=== PATIENT | female | born 1970 | race Caucasian/White ===

== ENCOUNTER 2018-11-30 10:21 | Inpatient (IN) | payer MEDICAID, OTHER ==
[~2018-11-30 10:21] MED LIST: BUPIV. HCL 0.25% (2.5MG/ML)/EPI. (1:200,000) PF 30 ML VIAL IJ ONE; DEXAMETHASONE SODIUM PHOSPHATE 10 MG/ML VIAL ONE; ENOXAPARIN SODIUM 40 MG/0.4 ML DISP.SYRIN SQ ONE; ESMOLOL HCL 100 MG/10 ML IV ONE; FAMOTIDINE 20 MG/2 ML VIAL IV ONE; LACTATED RINGERS 1,000 ML IV.SOLN IV ONE; LEVALBUTEROL NEB 1.25 MG/3 ML VIAL.NEB NEB ONE; LIDOCAINE HCL 1% PF 300MG/30ML VIAL ONE; LIDOCAINE HCL 2% PF 100MG/5ML VIAL IJ ONE; MIDAZOLAM HCL 2 MG/2 ML VIAL ONE; ONDANSETRON HCL/PF 4 MG/ 2ML VIAL ONE; PROPOFOL 200 MG/20 ML VIAL IV ONE; ROCURONIUM BROMIDE 10 MG/ML 5ML VIAL ONE; SEVOFLURANE 250 ML LIQUID IH ONE; SODIUM CHLORIDE IRRIG SOLUTION 3,000 ML IRRIG.SOLN IR ONE; SUGAMMADEX SODIUM 200 MG/2 ML VIAL IV ONE; ceFAZolin SODIUM 1 GM VIAL ONE
[2018-11-30 16:01] VITALS: BMI 52.8
--- NOTE | 2018-11-30 16:25 | History and Physical Report ---
History of Present Illnes - History of Present Illness Reason for Visit: S/P LSG History of Present Illness: Patient is a 48-year-old female who has tried multiple diets and exercise programs with no success. She has always struggled with her weight. She has tried many diet plans, diet pills, and walking and has not been able to keep it off. Patient and surgeon decided to proceed with gastric sleeve procedure. Procedure went well- patient will be admitted and monitored s/p surgical intervention. Patient has been on a liquid diet prior to surgery so she is a risk of dehydration s/p surgery. She will be admitted for IV hydration to help hydrate patient until she is able to tolerate a sufficient oral intake, will treat pain with IV medication until patient is able to tolerate oral meds, IV antiemetics to help reduce episodes of nausea and/or vomiting. Patient will be monitored closely using telemetry. Will monitor respiratory status due to asthma and daily use of inhaler. - Past Medical History Pulmonary: Asthma Gastrointestinal: GERD Psych: Anxiety Musculoskeletal: Other (JOINT PAIN) Grav: 2 Para: 2 - Past Surgical History Past Surgical History: Cholecystectomy, Hysterectomy, Other (CTR), Tubal Ligation, Other (MYRINGOTOMY) - Past Family History Mother Family History: CAD, CVA, Hypertension - Past Social History Smoke: No Alcohol: None Drugs: None Lives: With Family Domestic Violence: Negative - Health Maintenance Health Maintenance: Influenza Vaccine Influenza Vaccine: Current for this Influenza Season Pneumonia Vaccine: No Resuscitation Status: Resusciation Status Resuscitation Status Full Code - Unable to Obtain History Unable to Obtain: No Review of Systems - Review of Systems Constitutional: negative: Fever, Chills Eyes: negative: conjunctivae inflammation, eyelid inflammation ENT: negative: Ear Pain, Nose Pain, Throat Pain Respiratory: negative: Cough, Shortness of Breath, SOB with Excertion Cardiovascular: negative: Chest Pain, Edema, Light Headedness Gastrointestinal: Nausea, Vomiting, Abdominal Pain Genitourinary: negative: Dysuria Musculoskeletal: negative: Back Pain Skin: Other (INCISION SITE X 5). negative: Rash Neurological: negative: Weakness, Confusion - Medications/Allergies Allergies/Adverse Reactions: Allergies Allergy/AdvReac Type Severity Reaction Status Date / Time Penicillins Allergy Verified 11/30/18 16:12 Sulfa (Sulfonamide Allergy Verified 11/30/18 16:12 Antibiotics) Exam - Exam Vital Signs: Vital Signs (72 hours) 11/30/18 11/30/18 11/30/18 15:30 15:47 16:00 Temperature 96.5 F L 96.5 F L Pulse Rate [ 84 Apical] Pulse Rate [ 76 80 Left] Respiratory 20 22 20 Rate Blood Pressure 125/78 145/88 [Left Arm] O2 Sat by Pulse 92 95 Oximetry General: Alert, Oriented to Person, Oriented to Place, Oriented to Time, Cooperative, Moderate distress, Morbidly Obese HEENT: PERRLA, Nose Mucous membr. moist/Madeline Neck: Normal Range of Motion Carotids: NO BRUIT Lungs: Clear to auscultation, Normal air movement Cardiovascular: Regular rate, Normal S1, Normal S2 Peripheral Edema: NONE Peripheral Pulses: 2+ Abdomen: Soft, Decreased Bowel Sounds Integumentary: Warm, Dry, Pale, Other (INCISION SITE DRSG DRY/INTACT) Extremities: No edema, Normal pulses, No tenderness/swelling Neurological: Normal speech, Strength Equal Bilat, Sensation intact Psych/Mental Status: Mental status NL, Intact Judgment Assessment/Plan - Assessment/Plan (1) Status post gastric surgery Status: Acute Current Visit: Yes Plan: Plan to admit for IV hydration, IV pain meds, and IV antiemetics. Lovenox and SCDs to help prevent DVTs, IS and frequent ambulation will be implemented. Start ice chips and advance diet as tolerated. (2) Morbid obesity due to excess calories Status: Acute Current Visit: Yes Plan: Patient is s/p gastric sleeve. We will assist patient with implementing gastric sleeve diet protocol starting with ice chips and clear liquids and advancing as tolerated. (3) Asthma Status: Acute Current Visit: Yes Plan: Will monitor resp. status closely; continue use of home inhalers, and will implement incentive spirometry (4) GERD (gastroesophageal reflux disease) Status: Acute Current Visit: Yes Plan: Will implement Pepcid IV BID (5) Anxiety Status: Acute Current Visit: Yes Plan: Will monitor closely and implement medication as needed VTE Assessment - RISK FACTOR SCORE VTE RISK FACTOR SCORES: AGE 40-60 YEARS, OBESITY, MAJOR SURGERY/ANESTHESIA TIME > 1 HOUR - RISK VTE HIGH RISK: SCORE OF 3-4 (RISK PROXIMAL DVT 4-8%) PROPHYLAXIS NEEDED (Lovenox daily, IS, SCDs while in bed, frequent ambulation)
[2018-11-30] MEDS ORDERED: ALBUTEROL 90MCG/PUFF INHALER IH PRN ×2 (17:03→17:12)
[2018-11-30] MEDS ORDERED: LORazepam 1 MG TABLET PO PRN (17:03)
[2018-11-30] MEDS ORDERED: MORPHINE SULFATE 4 MG/ML VIAL IV PRN (17:34)
[2018-11-30] MEDS ORDERED: ONDANSETRON HCL/PF 4 MG/ 2ML VIAL IVP PRN (17:36)
[2018-11-30] MEDS: 0.9 % SODIUM CHLORIDE 1,000 ML IV SCH (17:57)
[2018-11-30] MEDS: CEFAZOLIN IV SCH (17:57)
[2018-11-30] MEDS: FAMOTIDINE 20 MG/2 ML VIAL IV SCH (21:13)
[2018-11-30] MEDS: PROMETHAZINE HCL 25 MG in 0.9 % SODIUM CHLORIDE 50 ML IV PRN (21:14)
[2018-12-01] MEDS: KETOROLAC TROMETHAMINE 30 MG/1ML VIAL IV PRN ×3 (00:27→21:09)
[2018-12-01] MEDS: 0.9 % SODIUM CHLORIDE 1,000 ML IV SCH ×4 (01:15→21:02)
[2018-12-01] MEDS: PROMETHAZINE HCL 25 MG in 0.9 % SODIUM CHLORIDE 50 ML IV PRN ×3 (02:40→21:06)
[2018-12-01] MEDS: CEFAZOLIN IV SCH (02:50)
[2018-12-01] MEDS ORDERED: MAG HYDROX/ALUMINUM HYD/SIMETH 30 ML UDC PO ONE (06:51)
--- NOTE | 2018-12-01 06:53 | Inpatient Progress Note ---
Subjective - Required Recertification Statement I anticipate X number of days because-include discharge plan: 1 - Review of Systems Events since last encounter: Patient states that she had a bad night. She had some nausea and dry heaves all night- she was encouraged to sip her drinks and wait in between drinks- she states that her pain is tolerable and pain medications are working. She has been up walking in the [place], wearing SCDs while in bed, and using Incentive Spirometry- incision sites are dry and intact. Will start patient on Reglan and Mylanta. General: Denies: Chills, Night Sweats HEENT: Denies: Head Aches Pulmonary: Denies: Dyspnea Cardiovascular: Denies: Chest Pain, Light Headedness Gastrointestinal: Nausea, Vomiting, Abdominal Pain Genitourinary: Denies: Dysuria Musculoskeletal: Denies: Back Pain Neurological: Denies: Weakness Objective - Exam Vitals and I&O: Vital Signs Temp 98.9 F 12/01/18 05:35 Pulse 111 H 12/01/18 05:35 Resp 16 12/01/18 05:35 BP 149/79 12/01/18 05:35 Pulse Ox 95 12/01/18 05:35 Intake & Output 11/30/18 11/30/18 12/01/18 11:59 23:59 11:59 Intake Total 450 1000 Output Total 600 900 Balance -150 100 Weight 139.706 kg Intake: IV 450 900 Right Hand 450 900 Oral 100 Output: Urine 600 900 Other: # Voids 1 # Bowel Movements 0 General: Alert, Oriented to Person, Oriented to Place, Oriented to Time, Cooperative, Moderate distress, Morbidly Obese HEENT: PERRLA, Nose Mucous membr. moist/[place] Neck: Supple, +2 carotid pulse wo bruit Lungs: Clear to auscultation, Normal air movement, Speaks full Sentences Cardiovascular: Regular rate, Normal S1, Normal S2 Abdomen: Normal bowel sounds, Soft Extremities: No edema, Normal pulses, No tenderness/swelling Skin: Warm, Dry, Pale, Other (incisions are dry and intact) Neurological: Normal gait, Normal speech, Strength Equal Bilat, Sensation intact Psych/Mental Status: Mental status NL, Mood NL, Appropriate Affect, Intact Judgment Assessment/Plan - Assessment/Plan (1) Status post gastric surgery Status: Acute Assessment: Incision without redness or drainage, positive bowel sounds, minimal discomfort, belching and flatus, no extremity pain or edema, had some nausea with dry heaves Plan: Will continue to have patient ambulate frequently in the [place], wear SCDs while in bed, frequent use of incentive spirometer, continue IVF until patient can take in sufficient oral intake- pt is tolerating po meds (2) Morbid obesity due to excess calories Status: Acute Assessment: Continuing with bariatric diet- patient had some nausea and dry heaves Plan: Will continue with clear liquid diet (3) Asthma Status: Acute Assessment: Snehal- REY Plan: Will start home meds as needed (4) GERD (gastroesophageal reflux disease) Status: Acute Assessment: Patient having nausea and dry heaves Plan: Will continue with IV Zofran and Phenergan, added Reglan and Mylanta, Will continue with Pepcid IV BID (5) Anxiety Status: Acute Assessment: Stable Plan: Will implement home meds as needed
[2018-12-01 07:06] LABS: MONOCYTES % 4.4 % (0.0-11.0)
[2018-12-01 07:07] LABS: BASOPHILS % 0.3 % (0.0-1.5); EOSINOPHILS % 0.9 % (0.0-6.8); NEUTROPHILS # 8.9 # k/uL (1.4-7.7)
[2018-12-01 07:17] LABS: eGFR (Non-African) > 60
[2018-12-01] MEDS: METOCLOPRAMIDE HCL 10 MG/2 ML VIAL IVP PRN ×2 (07:39→18:43)
[2018-12-01] MEDS: ENOXAPARIN SODIUM 40 MG/0.4 ML DISP.SYRIN SQ SCH (09:13)
[2018-12-01] MEDS: FAMOTIDINE 20 MG/2 ML VIAL IV SCH ×2 (09:15→21:10)
[2018-12-01] MEDS: HYDROcodone-ACETAMIN 7.5-325/15ML SOLN UD CUP PO PRN (11:53)
[2018-12-02] MEDS: METOCLOPRAMIDE HCL 10 MG/2 ML VIAL IVP PRN ×2 (02:23→08:35)
[2018-12-02] MEDS: 0.9 % SODIUM CHLORIDE 1,000 ML IV SCH (02:24)
[2018-12-02] MEDS: KETOROLAC TROMETHAMINE 30 MG/1ML VIAL IV PRN (03:50)
--- NOTE | 2018-12-02 06:31 | Discharge Summary ---
Discharge Summary - Discharge [facility] Admission Date: 11/30/18 Discharge Date: 12/02/18 History of Present Illness: Patient is a 48-year-old female who has tried multiple diets and exercise programs with no success. She has always struggled with her weight. She has tried many diet plans, diet pills, and walking and has not been able to keep it off. Patient and surgeon decided to proceed with gastric sleeve procedure. Procedure went well- patient will be admitted and monitored s/p surgical intervention. Patient has been on a liquid diet prior to surgery so she is a risk of dehydration s/p surgery. She will be admitted for IV hydration to help hydrate patient until she is able to tolerate a sufficient oral intake, will treat pain with IV medication until patient is able to tolerate oral meds, IV antiemetics to help reduce episodes of nausea and/or vomiting. Patient will be monitored closely using telemetry. Will monitor respiratory status due to asthma and daily use of inhaler. Condition at Discharge: Stable Home Medications: Ambulatory Orders Medication Instructions Recorded Albuterol Sulfate [Proair HFA] 1 inh IH DAILY PRN 11/30/18 Dicyclomine HCl [Bentyl] 10 mg PO DAILY PRN 11/30/18 LORazepam [Ativan] 1 mg PO Q6 PRN 11/30/18 Loratadine 10 mg PO DAILY 11/30/18 Montelukast Sodium [Singulair] 10 mg PO DAILY 11/30/18 Sumatriptan 20 mg NS DAILY PRN 11/30/18 Consultations this Visit: None Procedures this Visit: Other (S/P LSG) Allergies/Adverse Reactions: Allergies Allergy/AdvReac Type Severity Reaction Status Date / Time Penicillins Allergy Verified 11/30/18 16:12 Sulfa (Sulfonamide Allergy Verified 11/30/18 16:12 Antibiotics) Discharge Summary: Patient is a 48-year-old female that underwent the gastric sleeve procedure and has done well. She has been very cooperative with her care by ambulating frequently, using her incentive spirometer, and wearing her SCDs while in bed. She has been compliant with her diet during hospitalization. She is having minimal discomfort at this time and minimal nausea- she has is passing gas and belching. She is aware of discharge instructions and what she can and cannot do post surgical- she is aware of the strict diet she must follow to decrease discomfort and have success after procedure. She has family support and family will be taking her home- medications written by surgeon given to patient. She feels ready to go home. Hospital Course: Patient received IV pain medications, antiemetics, and IVF and was transitioned to oral. She has been up ambulating and using incentive spirometer. - Final Diagnosis (1) Status post gastric surgery Problems: Incision without redness or drainage, positive bowel sounds, minimal discomfort, belching and flatus, no extremity pain or edema Right or Left: Right (2) Morbid obesity due to excess calories Problems: Continue with bariatric sleeve diet- clear liquids today and start full liquids tomorrow Right or Left: Right (3) Asthma Problems: sTABLE Right or Left: Right (4) GERD (gastroesophageal reflux disease) Problems: Stable continue on Prilosec Right or Left: Right (5) Anxiety Problems: Stable may continue on home meds Right or Left: Right
[2018-12-02] MEDS: HYDROcodone-ACETAMIN 7.5-325/15ML SOLN UD CUP PO PRN (08:33)
[2018-12-02 08:35] VITALS: BP 127/63
[2018-12-02] MEDS: ENOXAPARIN SODIUM 40 MG/0.4 ML DISP.SYRIN SQ SCH (08:38)
[2018-12-02] MEDS: FAMOTIDINE 20 MG/2 ML VIAL IV SCH (08:38)
[2018-12-02] MEDS: PROMETHAZINE HCL 25 MG in 0.9 % SODIUM CHLORIDE 50 ML IV PRN (08:39)
--- NOTE | 2018-12-05 06:53 | Operative Note ---
PREOPERATIVE DIAGNOSIS: 1. Morbid obesity. 2. Joint pain. POSTOPERATIVE DIAGNOSIS: 1. Morbid obesity. 2. Joint pain. PROCEDURES PERFORMED: 1. Laparoscopic vertical sleeve gastrectomy. 2. Upper gastrointestinal endoscopy. SURGEON: Tan Diamond M.D. INDICATIONS FOR PROCEDURE: Ms. Therese Cardona is a 48-year-old female who presented with features of morbid obesity. She was noted to have a weight of 313 with a BMI of 53.8. The patient was advised laparoscopic vertical sleeve gastrectomy and possible hiatal hernia repair. The patient showed understanding and agreed to proceed. DESCRIPTION OF PROCEDURE: After explaining to the patient in detail and informed consent was obtained, the patient was identified in the preoperative holding area. The patient was transferred to the operating room and was placed in supine position. Sequential compressive devices were placed for DVT prophylaxis. Preoperative antibiotics were given. After induction of anesthesia, the abdomen was prepped and draped in a sterile fashion. Through a left upper quadrant 1-cm incision, and using Optiview technique, the peritoneal cavity was entered and pneumoperitoneum was created. Thereafter, under direct vision, another 5-mm trocar was placed in the left midabdomen and another 15-mm trocar was placed in the right midabdomen. Through a 1-cm incision in the right subcostal region, another 5-mm trocar was placed. Through a 1-cm incision in the epigastrium, a Kumar retractor was introduced and the left lobe of the liver was retracted. On initial inspection, the patient was noted to have no evidence of hiatal hernia. I took down the gastroepiploic vessels using a LigaSure. This was continued superiorly. The short gastric vessels were taken down. The gastrophrenic ligament was divided and the Angle of His was mobilized. The posterior attachments of the stomach on the pancreas were released. Distally, the gastroepiploic vessels were taken down up to about 4 cm proximal to the pylorus. At this point, a #38 Kinyarwanda Hurst Bougie was introduced into the stomach and was placed along the lesser curve. The stomach was then divided in a vertical fashion with multiple Endo BRITTANIE Covidien Black Load Staplers. The first firing was directed outwards towards the greater curvature. Subsequent firings were directed towards the Angle of His to create a loose sleeve around the #38 Kinyarwanda bougie. The bougie was then removed and an upper GI endoscopy was performed at this point. The scope was introduced into the esophagus and was gradually advanced into the stomach. The GE junction appeared normal. The sleeve size appeared normal. No evidence of any active bleeding was noted. The stomach was insufflated with air and irrigation of fluid along the staple line revealed no evidence of air leak. The stomach was then suctioned out and the scope was removed. Absolute hemostasis was ensured. Thorough saline irrigation was given. The Kumar retractor was removed. Approximately 10 mL of a lidocaine- Marcaine mix was instilled under the left hemidiaphragm. The sleeve gastrectomy specimen was removed. The abdomen was then deflated. The incisions were closed with 4-0 Monocryl. Dermabond was applied. Approximately 10 mL of a lidocaine- Marcaine mix was injected into all the incisions. The patient was awakened from anesthesia and was transferred to the recovery room in stable condition. ESTIMATED BLOOD LOSS: Approximately 20 mL. CONDITION OF THE PATIENT: Stable. FLUIDS GIVEN: Per Anesthesia note. SPECIMEN(S) SENT: Sleeve gastrectomy specimen. COMPLICATIONS: None. ANESTHESIA: General. Tan Diamond M.D. JACINTO/elia (Please copy [facility] provider when applicable) Job #[id number] TRACY
== END 2018-12-02 10:45 | disposition home or self-care (01) | DRG 621 ==
LOC: OPSURG 10:21 → SOUTH 15:40
PROVIDERS: ADMIT Nurse Practitioner Family; ATTEND Nurse Practitioner Family
PROC: 0DB64Z3 Excision of Stomach, Percutaneous Endoscopic Approach, Vertical (ICD-10-PCS; principal; 2018-11-30)
DX: E66.01 Morbid (severe) obesity due to excess calories (principal); Z68.43 Body mass index [BMI] 50.0-59.9, adult; F41.9 Anxiety disorder, unspecified; K21.9 Gastro-esophageal reflux disease without esophagitis; J45.909 Unspecified asthma, uncomplicated; Z79.899 Other long term (current) drug therapy; Z88.0 Allergy status to penicillin; Z88.2 Allergy status to sulfonamides; Z90.49 Acquired absence of other specified parts of digestive tract; Z90.710 Acquired absence of both cervix and uterus; Z98.51 Tubal ligation status; Z87.19 Personal history of other diseases of the digestive system; Z82.49 Family history of ischemic heart disease and other diseases of the circulatory system; Z82.3 Family history of stroke
CPT/HCPCS: 80053; 85025; 88305; 97161; 97165; 97530; A9270; J0690; J1650; J1885; J2001; J2250; J2405; J2550; J2704; J7030; J7120; J7614